=== PATIENT | male | born 1950 | race American Indian/Alaskan Native ===

== ENCOUNTER 2024-07-14 16:55 | Observation (INO) | payer MEDICARE, MEDICAID, SELFPAY ==
[2024-07-14] VITALS (7 sets, daily range): BP systolic 114–175; BP diastolic 62–90; PULSE 64–79; RESP 18–20; TEMP 36.8–37; O2SAT 68–97; BMI 32.8; BMI 33.0
--- NOTE | 2024-07-14 17:27 | PD.EDADULT ---
ED General RME/HPI General Chief complaint: General Adult/Misc Complain Stated complaint: HYPERGLYCEMIA Time Seen by Provider: 07/14/24 17:25 Arrival date/time: 07/14/24 16:55 CC: Frequent urination thirst HPI ongoing for the past week patient was seen in the clinic was noted to have a blood sugar greater than 509 1 1 was initiated transfer patient here patient denies any chest pain shortness of breath fever chills nausea vomiting or difficulty breathing. Patient has been a diabetic for 25 years. No other family members are ill with any symptoms. Related Data Home Medications ?Medication ?Instructions ?Recorded ?Confirmed Levothyroxine * (SYNTHROID *) 175 mcg PO QDAY #0 tabs 12/28/15 07/21/23 atorvastatin 20 mg tablet (Lipitor) 20 mg PO HS #0 tabs 12/28/15 07/21/23 clopidogrel 75 mg tablet (Plavix) 75 mg PO QDAY #0 tabs 12/28/15 07/21/23 lisinopril 40 mg tablet 40 ml PO QDAY #0 tabs 12/28/15 07/21/23 nitroglycerin 0.4 mg sublingual 0.4 mg SL PRN #0 tabs 06/18/16 07/21/23 tablet (Nitrostat) Insulin Aspart * (NOVOLOG *) 18 unit subcut BID #0 units 09/16/16 07/21/23 insulin degludec 100 unit/mL (3 45 subcut QAM ##0 09/16/16 07/21/23 mL) subcutaneous pen (Tresiba FlexTouch U-100 insulin) tamsulosin 0.4 mg capsule 0.4 mg PO QDAY 05/04/18 07/21/23 gabapentin 100 mg capsule 100 mg PO TID 08/10/21 07/21/23 sitagliptin phosphate 50 1 tab PO BID 08/10/21 07/21/23 mg-metformin 1,000 mg tablet (Janumet) dapagliflozin propanediol 10 mg 10 mg PO QDAY 01/14/23 07/21/23 tablet (Farxiga) metformin 1,000 mg tablet 1,000 mg PO QDAY 01/14/23 07/21/23 carvedilol 6.25 mg tablet 6.25 mg PO BID 07/21/23 07/21/23 ergocalciferol (vitamin D2) 1,250 1,250 mcg PO QWEEK 07/21/23 07/21/23 mcg (50,000 unit) capsule fenofibrate 54 mg tablet 54 mg PO QDAY 07/21/23 07/21/23 Allergies Allergy/AdvReac Type Severity Reaction Status Date / Time NKA* Allergy Uncoded 03/22/24 09:38 Review of Systems Review of Systems Narrative Review of Systems: GEN: No fever, no chills, no weight loss, + thirst and urination EYES: No discharge, no visual changes, no pain HEENT: No ear pain, no congestion, no sore throat PULM: No shortness of breath, no cough, no congestion CV: No chest pain, no dyspnea on exertion, no palpitations GI: No nausea, no vomiting, no diarrhea, no pain, no constipation : No frequency, no urgency, no dysuria MUSC/SKEL: No joint pain, no back pain SKIN: No rash PSYCH: No hallucinations, no depression HEME/LYMPH: No easy bleeding or bruising tendencies NEURO: No weakness, no headache Past Medical History Past Medical History CARDIAC: Negative Congestive Heart Failure RESPIRATORY: Negative Chronic Obstructive Pulmonary Disease (COPD) GENITOURINARY: Negative Renal Disease ENDOCRINE: Positive Diabetes Mellitus Type 2; Negative Diabetes Mellitus Type 1 Social History SMOKING STATUS: Never smoker ED Exam Narrative Physical exam: [General: Obese not in any acute distress Head normocephalic HEENT: Within acceptable limits Neck is supple nontender Chest equal chest rise nontender to palpation Respiratory: Clear to auscultation no wheezes crackles or rubs CV: Rate rhythm is regular no murmurs rubs or clicks Abdomen is distended secondary to body habitus soft nontender no masses positive bowel sounds all 4 quadrants Back: No CVA tenderness no spinous process tenderness from cervical spine thoracic and lumbar spine Skin: Intact no petechiae rash induration ulceration or crepitus Extremities: Moving all extremity against resistance cap refill less than 2 seconds neurosensory intact. No lower extremity edema Neuro: Awake alert oriented x3 Glascow coma 15 no focal deficits] Course Quality Measures none Orders Category Date Time Status Saline [Insert IV] NOW Care 07/14/24 17:26 Active XR chest 1V portable Stat Exams 07/14/24 19:24 Ordered A1C [Glycohemoglobin w (eAG)] Stat Lab 07/14/24 19:24 Ordered B-Type Natriuretic Peptide Stat Lab 07/14/24 17:46 Completed Beta Hydroxybutyrate Stat Lab 07/14/24 17:46 Completed CBC Stat Lab 07/14/24 17:46 Completed Comprehensive Metabolic Panel Stat Lab 07/14/24 17:46 Completed Drug Screen,Urine Stat Lab 07/14/24 17:26 Ordered Free T4 (Free Thyroxine) Stat Lab 07/14/24 17:46 Completed LDH (Lactate Dehydrogenase) Stat Lab 07/14/24 17:46 Completed Magnesium Stat Lab 07/14/24 17:46 Completed Partial Thromboplastin Time Stat Lab 07/14/24 17:46 Completed Prothrombin Time with INR Stat Lab 07/14/24 17:46 Completed TSH [Thyroid Stimulating Hormone] Stat Lab 07/14/24 17:46 Completed Troponin I Stat Lab 07/14/24 17:46 Completed Urinalysis Stat Lab 07/14/24 17:26 Ordered Sodium Chloride 0.9% 1000 ml [Ns] 1,000 ml Med 07/14/24 19:16 Active IV 150 mls/hr Sodium Chloride 0.9% 1000 ml [Ns] 1,000 ml Med 07/14/24 17:27 Discontinued IV 999 mls/hr Vital Signs Vital signs: Vital Signs Temperature 98.2 F 07/14/24 17:05 Pulse Rate 79 07/14/24 17:05 Respiratory Rate 18 07/14/24 17:05 Blood Pressure 150/78 H 07/14/24 17:05 Pulse Oximetry (%) 97 07/14/24 17:05 Oxygen Delivery Method Room Air 07/14/24 17:05 [facility] Patient data External records reviewed:: [facility] previous records and EMS form Clinical information provided by:: patient and EMS Social determinants that could affect healthcare access:: none Patient has the following chronic illnesses:: Diabetes hypertension hyperlipidemia on blood thinners hypothyroidism How is presenting disease/condition affected by chronic disease/condition?: exacerbated by Evaluation data The following diagnostics were reviewed and interpreted by me:: lab results Lab and/or radiology exams considered but not ordered:: CBC shows no acute leukocytosis there is anemia of 12 and 35, no thrombocytopenia Coags within acceptable limits Troponin is negative BNP is negative CMP shows sodium 136 potassium of 4.8 chloride of 102 CO2 of 25.8 BUN of 29 creatinine of 2.2 blood glucose of 378. Interpretation Summary: Review of the medical records it shows that this is the worst renal function has been since 2020 maybe earlier. Glucose is coming down with IV fluids without any insulin intervention. I am concerned that the patient will continue to have decline in his renal function even if we correct the glucose level. Patient will be admitted for TYRELL. Patient is agreement with this plan The patient's case discussed with Dr. Jama agrees to accept the patient for admission. Medications Medications considered but not ordered:: None Medication administrations:: Medication Administration History Sodium Chloride (Ns) 1,000 mls @ 150 mls/hr IV .Q6H40M ISAIAH Stop: 08/13/24 19:15 Discontinued Medications Sodium Chloride (Ns) 1,000 mls @ 999 mls/hr IV .Q1H1M ONE Stop: 07/14/24 18:27 Last Admin: 07/14/24 18:15 Dose: 999 mls/hr Documented By: DOUG None Consultations Consultation(s) initiated? (list below): No Diagnosis Differential Diagnosis ED Complaint MDM: DKA TYRELL hyperglycemia Most likely diagnosis given after review of the tests above:: TYRELL hyperglycemia diabetes. Admission Indicated Admission indicated?: indicated Explain why admission is indicated or not indicated:: Further medical management Admission Request Was there a request for admission?: No Disposition Plan Disposition Plan: Admit Medical Decision Making Differential Diagnosis Differential Diagnosis: DKA TYRELL hyperglycemia Lab Data 07/14/24 17:46 07/14/24 17:46 Labs: Lab Results 07/14/24 Range/Units 17:46 WBC 6.3 (3.8-10.6) Thou/mm3 RBC 4.01 L (4.50-5.90) Miln/mm3 Hgb 12.7 L (13.5-16.0) g/dL Hct 35.8 L (41.0-53.0) % MCV 89 (80-100) fL MCH 31.7 (25.0-35.0) pg MCHC 35.5 (31.0-37.0) g/dl RDW Std Deviation 39.8 (35.1-43.9) fL Plt Count 274 (140-440) Thou/mm3 Neut % (Auto) 51 (37-80) % Lymph % (Auto) 32 (10-50) % Bartholomew % (Auto) 11 (0-12) % Eos % (Auto) 5 (0-10) % Baso % (Auto) 1 (0-2.5) % Neut # (Auto) 3.2 (1.8-7.7) Thou/mm3 Lymph # (Auto) 2.0 (1.0-4.8) Thou/mm3 Bartholomew # (Auto) 0.7 (0.0-0.8) Thou/mm3 Eos # (Auto) 0.3 (0.0-0.5) Thou/mm3 Baso # (Auto) 0.0 (0.0-0.2) Thou/mm3 Immature Gran # (Auto) 0.04 H (0.00-0.00) Thou/mm3 Absolute Nucleated RBC 0.02 H (0.00-0.00) Thou/mm3 Immature Gran % 1 H (0-0) % Nucleated RBC % 0 (0) /100 WBC PT 10.3 (9.0-12.2) Seconds INR 0.9 (0.9-1.3) APTT 24.2 (22.0-36.0) Seconds Sodium 136 (136-145) mMol/L Potassium 4.8 (3.4-5.1) mMol/L Chloride 102 (98-107) mMol/L Carbon Dioxide 25.8 (20.0-31.0) mMol/L Anion Gap 8 (7-16) BUN 29 H (9-23) mg/dL Creatinine 2.2 H (0.6-1.3) mg/dL Estim Creat Clear Calc 32.9 L (>60) mL/min eGFR 31 L (60 - ) See Note BUN/Creatinine Ratio 13 (12-20) Ratio Glucose 378 H (74-106) mg/dL Calculated Osmolality 293 (275-295) Calcium 9.3 (8.3-10.6) mg/dL Corrected Calcium 9.3 (8.5-10.1) mg/dL Magnesium 2.0 (1.6-2.6) mg/dL Total Bilirubin 0.3 (0.3-1.2) mg/dL AST 13 (0-34) U/L ALT 13 (10-49) U/L Alkaline Phosphatase 89 (46-116) U/L Lactate Dehydrogenase 198 (120-246) U/L Troponin I < 0.020 (0.0-0.045) ng/mL B-Natriuretic Peptide 26 (0-100) pg/mL Total Protein 6.7 (5.7-8.2) gm/dL Albumin 4.3 (3.4-4.8) gm/dL Globulin 2.4 (2.3-3.5) gm/dL Albumin/Globulin Ratio 1.8 (1.2-2.2) Beta-Hydroxybutyrate/Acetoacetate 0.0 (<0.6) mmol/L TSH 1.73 (0.55-4.78) uIU/mL Free T4 1.51 (0.89-1.76) ng/dL Discharge Plan Plan Patient Disposition: Other Care w/in Hosp ([facility]) Patient condition on transfer: Stable Prescriptions/Referrals Prescriptions/Med Rec: No Action tamsulosin 0.4 mg capsule 0.4 mg PO QDAY gabapentin 100 mg capsule 100 mg PO TID Janumet 50-1,000 mg tablet 1 tab PO BID metformin 1,000 mg tablet 1,000 mg PO QDAY Farxiga 10 mg tablet 10 mg PO QDAY ergocalciferol (vitamin D2) 1,250 mcg (50,000 unit) capsule 1,250 mcg PO QWEEK carvedilol 6.25 mg tablet 6.25 mg PO BID Rx Instructions: must administer with a meal/food fenofibrate 54 mg tablet 54 mg PO QDAY atorvastatin [Lipitor] 20 MG tablet 20 mg PO HS Qty: 0 clopidogrel [Plavix] 75 MG tablet 75 mg PO QDAY Qty: 0 lisinopril 40 MG tablet 40 ml PO QDAY Qty: 0 Levothyroxine * (SYNTHROID *) 175 MCG tablet 175 mcg PO QDAY Qty: 0 nitroglycerin [Nitrostat] 0.4 MG tablet, sublingual 0.4 mg SL PRN Qty: 0 insulin degludec [Tresiba FlexTouch U-100] 100 UNIT/1 ML insulin pen 45 Sub-Q QAM Qty: 0 Insulin Aspart * (NOVOLOG *) 100 U/ML cartridge 18 unit Sub-Q BID Qty: 0 Referrals: Yony Stuart PA-C [Primary Care Provider] - In 1 week Problem List Clinical Impression: TYRELL (acute kidney injury), Diabetes mellitus with hyperglycemia Patient/Caregiver Discharge Instructions Print Language: Nicaraguan Stand Alone Forms: [employer] Info., Patient Portal Info Letter PA/DIRECT MARKETING INTERN Supervising Physician PA/DIRECT MARKETING INTERN Supervising Physician: Sung Zee ENP
[2024-07-14 18:04] LABS: Basophils % (Auto) 1 % (0-2.5); Eosinophils # (Auto) 0.3 Thou/mm3 (0.0-0.5); Eosinophils % (Auto) 5 % (0-10); Hematocrit 35.8 % (41.0-53.0); Hemoglobin 12.7 g/dL (13.5-16.0); Immature Granulocytes % (Auto) 1 % (0-0); Immature Granulocytes Auto 0.04 Thou/mm3 (0.00-0.00); Lymphocytes % (Auto) 32 % (10-50); Mean Corpuscular HGB Conc 35.5 g/dl (31.0-37.0); Mean Corpuscular Hemoglobin 31.7 pg (25.0-35.0); Mean Corpuscular Volume 89 fL (80-100); Monocytes # (Auto) 0.7 Thou/mm3 (0.0-0.8); Monocytes % (Auto) 11 % (0-12); Neutrophils # (Auto) 3.2 Thou/mm3 (1.8-7.7); Neutrophils % (Auto) 51 % (37-80); Nucleated Red Blood Cell # 0.02 Thou/mm3 (0.00-0.00); Nucleated Red Blood Cell % 0 /100 WBC (0); Platelet Count 274 Thou/mm3 (140-440); RDW Standard Deviation 39.8 fL (35.1-43.9); Red Blood Count 4.01 Miln/mm3 (4.50-5.90); White Blood Count 6.3 Thou/mm3 (3.8-10.6)
[2024-07-14 18:15] LABS: INR 0.9 (0.9-1.3); Partial Thromboplastin Time 24.2 Seconds (22.0-36.0); Prothrombin Time 10.3 Seconds (9.0-12.2)
[2024-07-14] MEDS: SODIUM CHLORIDE 0.9% 1000 ML 1,000 ML 999 ML IV (18:15)
[2024-07-14 18:20] LABS: B-Type Natriuretic Peptide 26 pg/mL (0-100)
[2024-07-14 18:26] LABS: Alanine Aminotransferase 13 U/L (10-49); Albumin, Serum 4.3 gm/dL (3.4-4.8); Albumin/Globulin Ratio 1.8 (1.2-2.2); Alkaline Phosphatase 89 U/L (46-116); Anion Gap 8 (7-16); Aspartate Amino Transferase 13 U/L (0-34); BUN/Creatinine Ratio 13 Ratio (12-20); Bilirubin,Total 0.3 mg/dL (0.3-1.2); Blood Urea Nitrogen 29 mg/dL (9-23); Calcium 9.3 mg/dL (8.3-10.6); Calcium (Corrected) 9.3 mg/dL (8.5-10.1); Carbon Dioxide 25.8 mMol/L (20.0-31.0); Chloride 102 mMol/L (98-107); Creatinine (Component) 2.2 mg/dL (0.6-1.3); Estimated Creatinine Clearance 32.9 mL/min (>60); Free T4 (Free Thyroxine) 1.51 ng/dL (0.89-1.76); Globulin 2.4 gm/dL (2.3-3.5); Glucose 378 mg/dL (74-106); LDH (Lactate Dehydrogenase) 198 U/L (120-246); Osmolality,Calculated 293 (275-295); Potassium 4.8 mMol/L (3.4-5.1); Sodium 136 mMol/L (136-145); Thyroid Stimulating Hormone 1.73 uIU/mL (0.55-4.78); Total Protein 6.7 gm/dL (5.7-8.2); Troponin I < 0.020 ng/mL (0.0-0.045); eGFR 31 See Note
--- NOTE | 2024-07-14 19:24 | XR_ITS ---
Examination: AP chest single view Technique one AP portable semiupright chest single view Exam date and time: July 14, 2024 1930 hrs. Indications: Admission diagnosis hyperglycemia Findings: Reduced inspiratory effort Minor atelectasis left base Normal heart size No pneumonia or pulmonary edema Impression: No pneumonia or pulmonary edema
[2024-07-14] MEDS: SODIUM CHLORIDE 0.9% 1000 ML 1,000 ML 100 ML IV (19:48)
--- NOTE | 2024-07-14 19:52 | EKG_ITS ---
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
[2024-07-14 20:04] LABS: Collection Type, Urine Clean Catch; Squamous Epithelial Cell,Urine 0 /hpf (0-5)
--- NOTE | 2024-07-14 20:12 | EVENTNT_ITS ---
Documentation for date of: 07/14/24 Event Note Event Note: Chief Complaint: Frequent urination, increased thirst, and persistently elevated blood glucose levels. History of Present Illness: The patient is a 64-year-old male with a 25-year history of diabetes mellitus who presents with worsening symptoms over the past week, including frequent urination, increased thirst, and persistently elevated blood glucose levels. The patient reports feeling nauseous but denies vomiting. He initially sought evaluation at his clinic, where he was noted to have a blood glucose level exceeding 500 mg/dL. Due to system issues preventing further evaluation, he was transferred to the Emergency Department by ambulance. The patient denied fever, chills, chest pain, shortness of breath, or diarrhea. He mentioned a cough and flu-like symptoms the prior weekend but denies ongoing respiratory complaints. He monitors his blood glucose levels regularly, noting that they have remained consistently elevated despite using 80 units of insulin daily (40 units in the morning and 40 units at night). He recently started on semaglutide (Ozempic), which was delayed due to a refill issue but resumed last week. Upon arrival at the ED, vital signs included a temperature of 98.2?F, heart rate 79 bpm, respiratory rate 18 bpm, blood pressure 150/78 mmHg, and oxygen saturation of 97% on room air. Laboratory tests showed blood glucose at 378 mg/dL, hemoglobin 12.7 g/dL, white blood cell count 6.3 x 10?/?L, creatinine 2.2 mg/dL, and troponin < 0.02 ng/mL. Chest X-ray showed no evidence of pneumonia or pulmonary edema. The patient was admitted for observation and hydration to address his elevated blood glucose and signs of dehydration. He denies recent dietary changes but attributes his elevated glucose to challenges in managing his diabetes. Past Medical History: * Diabetes Mellitus: 25 years, on insulin (80 units/day) and semaglutide. * Hypertension: Diagnosed but no specific medications provided. Past Surgical History: * None reported. Social History: * Non-smoker. * Sober for over 40 years. * Lives alone and cooks for himself. Physical Examination: Vitals: Temp 98.2?F, HR 79 bpm, RR 18/min, BP 150/78 mmHg, SpO? 97% on room air. * General: Alert, oriented, no acute distress. * Cardiovascular: Normal rate and rhythm, no murmurs. * Respiratory: Clear to auscultation bilaterally, no wheezes or rales. * Abdomen: Soft, non-tender, no organomegaly. * Extremities: No edema. * Neurological: Alert and oriented x3, no focal deficits. Labs and Imaging: * Lab Results: * Hemoglobin: 12.7 g/dL * WBC: 6.3 x 10?/?L * Creatinine: 2.2 mg/dL (elevated, consistent with dehydration) * Blood Glucose: 378 mg/dL * Troponin: < 0.02 ng/mL * Imaging: * Chest X-ray: No pneumonia or pulmonary edema. Assessment and Plan: Hyperglycemia: Likely due to suboptimal glucose control and recent dehydration. - Continue current insulin regimen; add sliding scale insulin for tighter control. Will need to adjust on DC. - Monitor blood glucose closely. - Check A1C. - Check UA. Acute Kidney Injury (Creatinine 2.2): Likely secondary to dehydration. - Administer IV fluids for hydration. - Monitor renal function and urine output. Diabetes Mellitus: Long-standing with poor control. - Reinforce dietary counseling (low-carb diet). - Follow up with PCP. Hypertension: Chronic conditions requiring continued management. - Verify medication regimen and adherence. Education and Discharge Planning: - Educate the patient on the importance of regular glucose monitoring and dietary modifications. - Schedule follow-up with primary care for ongoing diabetes management.
--- NOTE | 2024-07-14 20:18 | PD.RESHP ---
Documentation for date of: 07/14/24 HPI History of Present Illness Chief complaint: Nausea, Uncontrolled blood glucose History of present illness: HPI: Patient is a 73-year-old male with a past medical history significant for insulin-dependent diabetes mellitus type 2 [9.6], essential hypertension, hypothyroidism, hyperlipidemia, BPH presenting today with a chief complaint of nausea and uncontrolled blood glucose at home. He follows up regularly with his associate research scientist Dr. Moreau in [place] and urologist Dr. Dyer. Patient stated that for the past week his blood glucose at home has been elevated greater than 400 consistently every day despite being compliant with his insulin as well as oral medication. This was associated with nausea, decreased appetite and generalized malaise. He also had dysuria and increased urinary frequency for the past week. Denies any fever, vomiting, diarrhea, sick contacts, shortness of breath, blurry vision, headache or syncope. Upon review patient also denied any chest pain/pressure, palpitations, PND, orthopnea, dizziness and lower extremity swelling. Patient says that today he reported to the [facility] at the [facility] for nausea and his uncontrolled blood sugars. He was referred to [facility] emergency department from there. Of note patient had an elevated PSA of 3.147 on 07/15/2022. He subsequently had a full workup including MRI ultrasound biopsy at [facility]. MRI revealed heterogeneous prostate gland suspicious 3. Biopsy however was benign. Prostate cancer was ruled out and patient is currently on treatment for BPH and erectile dysfunction by Dr. Dyer. Patient has a follow-up appointment with them in 1 week for further discussion of vacuum device for erectile dysfunction. ED course: BP 150/78 pulse 79, resp 19, temp 98.2 F, SpO2 97% on room air. Labs significant for Hb 12.7, HCT 35.8, WBC 6.3, BUN 29, CR 2.2, glucose 378. Urine analysis pending as well as U tox pending On imaging chest x-ray significant for increased hilar markings bilaterally, unfolded aorta, no signs of pulmonary edema, consolidation or pleural effusion. In the ED patient received normal saline IV fluids 2 L bolus. Patient will be admitted to observation for TYRELL likely prerenal secondary to uncontrolled insulin-dependent diabetes mellitus type 2. Review of Systems Review of Systems Narrative Review of Systems: GENERAL: Denies fever/chills or diaphoresis. HEENT: Denies headaches or visual changes. Denies discharge. Neuro: Denies unusual weakness or difficulty speaking. CARDIO: Denies chest pain or palpitations. PULM: Denies SOB, couging or wheezing. GI: As above. URO: Endorses Dysuria, increased urinary frequency and nocturia > 3 episodes. MSK/EXT/SKIN: Denies joint/skeletal/muschle pain, issues/changes in upper or lower extremities, tingling and buringing sensation of toes. PSYCH: Cooperative, pleasant mood & affect. The rest of the review of systems is otherwise negative. Past Medical History Past Medical History Comments PMH COMMENT: Past medical history: ?Insulin-dependent diabetes mellitus type 2 x 20 years ? Essential hypertension x 20 years ? Hypothyroidism ? Hyperlipidemia ? BPH ? Erectile dysfunction ? Obesity class I Medication list: ? L-thyroxine 175 mcg p.o. daily ? Tradjenta 5 Mg p.o. daily ? Lantus 65 units SC at bedtime ? Ozempic 0.5 Mg SC weekly ? Gabapentin 300 Mg p.o. 3 times daily ? Clopidogrel 75 Mg p.o. daily ? Atorvastatin 20 Mg p.o. at bedtime ? Tamsulosin 0.4 Mg p.o. at bedtime ? Carvedilol 6.25 Mg p.o. 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. Education Level: Attended college at [employer], degree in studies. Recently graduated from [employer] with a bachelor's degree in arts. Marital Status: Single Tobacco use: Denies ETHO use: Denies. 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 As a teenager and during college he was a heavy alcoholic and would drink beer, gin and wine until he passed out. Illicit drug use: Denies Social History Note: lives with cousin. At baseline he ambulates with a cane and carry out all ADLs independently. Family History: Mom?cervical, breast and skin cancer. at 85 Father? from a stroke at age 54 Exam Vital Signs Temp Pulse Resp BP Pulse Ox O2 Del Method 98.6 F 70 19 151/90 H 68 L Room Air 07/14/24 18:11 07/14/24 18:11 07/14/24 18:11 07/14/24 18:11 07/14/24 18:11 07/14/24 18:11 Narrative Exam Constitutional Alert, oriented x 3 and comfortable. Elderly, obese male. HEENT Vision grossly intact. Patent nares. Trachea midline Respiratory Chest normal on inspection and clear auscultation bilaterally Cardiovascular S1 and S2 audible, RRR. No murmurs carotid bruit. No gross JVD. Abdominal Soft, obese and non tender to palpation in all quadrants. BS + Genitourinary No bladder tenderness, no flank pain. Normal to palpation Musculoskeletal Extremities tone within normal limits. No LE edema. Neurological CN II - XII grossly intact. Extremity motor and sensation grossly intact. Skin Warm, dry and intact. Dry flaky patch of skin on lateral to the umbilicus on the right approximately 5 x 5 cm Psychiatric Patient has good affect, is cooperative Results: Labs 07/14/24 17:46 07/14/24 17:46 Labs: Short CBC 07/14/24 Range/Units 17:46 WBC 6.3 (3.8-10.6) Thou/mm3 Hgb 12.7 L (13.5-16.0) g/dL Hct 35.8 L (41.0-53.0) % Plt Count 274 (140-440) Thou/mm3 BMP 07/14/24 17:46 Sodium 136 Potassium 4.8 Chloride 102 Carbon Dioxide 25.8 BUN 29 H Creatinine 2.2 H Glucose 378 H Calcium 9.3 Cardiac Enzymes 07/14/24 Range/Units 17:46 Troponin I < 0.020 (0.0-0.045) ng/mL Liver Function 07/14/24 Range/Units 17:46 Total Bilirubin 0.3 (0.3-1.2) mg/dL AST 13 (0-34) U/L ALT 13 (10-49) U/L Alkaline Phosphatase 89 (46-116) U/L Albumin 4.3 (3.4-4.8) gm/dL Quality Measures Quality Measures none Advance care planning discussed with:: patient Medications Home Medications and Allergies Home Medications ?Medication ?Instructions ?Recorded ?Confirmed ?Type Levothyroxine * (SYNTHROID *) 175 mcg PO QDAY #0 tabs 12/28/15 07/21/23 History atorvastatin 20 mg tablet (Lipitor) 20 mg PO HS #0 tabs 12/28/15 07/21/23 History clopidogrel 75 mg tablet (Plavix) 75 mg PO QDAY #0 tabs 12/28/15 07/21/23 History lisinopril 40 mg tablet 40 ml PO QDAY #0 tabs 12/28/15 07/21/23 History nitroglycerin 0.4 mg sublingual 0.4 mg SL PRN #0 tabs 06/18/16 07/21/23 History tablet (Nitrostat) Insulin Aspart * (NOVOLOG *) 18 unit subcut BID #0 units 09/16/16 07/21/23 History insulin degludec 100 unit/mL (3 45 subcut QAM ##0 09/16/16 07/21/23 History mL) subcutaneous pen (Tresiba FlexTouch U-100 insulin) tamsulosin 0.4 mg capsule 0.4 mg PO QDAY 05/04/18 07/21/23 History gabapentin 100 mg capsule 100 mg PO TID 08/10/21 07/21/23 History sitagliptin phosphate 50 1 tab PO BID 08/10/21 07/21/23 History mg-metformin 1,000 mg tablet (Janumet) dapagliflozin propanediol 10 mg 10 mg PO QDAY 01/14/23 07/21/23 History tablet (Farxiga) metformin 1,000 mg tablet 1,000 mg PO QDAY 01/14/23 07/21/23 History carvedilol 6.25 mg tablet 6.25 mg PO BID 07/21/23 07/21/23 History ergocalciferol (vitamin D2) 1,250 1,250 mcg PO QWEEK 07/21/23 07/21/23 History mcg (50,000 unit) capsule fenofibrate 54 mg tablet 54 mg PO QDAY 07/21/23 07/21/23 History Allergies Allergy/AdvReac Type Severity Reaction Status Date / Time NKA* Allergy Uncoded 03/22/24 09:38 Visit Medications Acetaminophen (Acetaminophen 325 Mg Tablet) 650 mg PO Q6H PRN PRN Reason: Fever >101.5 Stop: 08/13/24 19:40 Carvedilol (Carvedilol 3.125 Mg Tablet) 6.25 mg PO BIDWM ISAIAH Stop: 08/14/24 07:59 Clopidogrel Bisulfate (Clopidogrel Bisulfate 75 Mg Tablet) 75 mg PO QDAY [facility] Stop: 08/14/24 08:59 Dextrose (Dextrose 50%-Water Inj 50 Ml Syringe) 25 ml IV Q15MIN PRN PRN Reason: BG 50-70 responsive npo pt Stop: 08/13/24 19:42 Dextrose (Dextrose 50%-Water Inj 50 Ml Syringe) 50 ml IV Q15MIN PRN PRN Reason: BG <50 OR BG <70 & pt unresponsive Stop: 08/13/24 19:42 Glucagon (Glucagon Inj 1 Mg Vial) 1 mg IM Q15MIN PRN PRN Reason: BG <70, and no IV access Heparin Sodium (Porcine) (Heparin Sod Inj 5000 Unit/Ml Vial) 5,000 unit SC Q8HR [facility] Stop: 07/28/24 21:59 Sodium Chloride (Ns) 1,000 mls @ 100 mls/hr IV .Q10H [facility] Stop: 08/13/24 19:44 Last Admin: 07/14/24 19:48 Dose: 100 mls/hr Insulin Glargine (Insulin Glargine (Lantus) 5 Unit/0.05 Ml (Per 5 Units)) 40 unit SC BID [facility] Stop: 08/13/24 20:59 Insulin Human Regular (Insulin Hum Regular 1 Unit/0.01 Ml (Per Unit)) 0 unit SC Q6HR [facility]; Protocol Stop: 08/14/24 00:00 Levothyroxine Sodium 125 mcg/ (Levothyroxine Sodium 50 mcg) 175 mcg PO ACBR [facility] Stop: 08/14/24 05:59 Tamsulosin HCl (Tamsulosin Hcl 0.4 Mg Capsule) 0.4 mg PO QDAY [facility] Stop: 08/14/24 08:59 Discontinued Medications Sodium Chloride (Ns) 1,000 mls @ 999 mls/hr IV .Q1H1M ONE Stop: 07/14/24 18:27 Last Infusion: 07/14/24 19:46 Dose: Infused Sodium Chloride (Ns) 1,000 mls @ 150 mls/hr IV .Q6H40M [facility] Stop: 08/13/24 19:15 Last Admin: 07/14/24 19:48 Dose: Not Given Assessment & Plan Plan Patient is a 73-year-old male with a past medical history significant for insulin-dependent diabetes mellitus type 2 [9.6], essential hypertension, hypothyroidism, hyperlipidemia, BPH presenting today with a chief complaint of nausea and uncontrolled blood glucose at home. He follows up regularly with his associate research scientist Dr. Moreau in [place] and urologist Dr. Dyer. Patient will be admitted to observation for TYRELL likely prerenal secondary to uncontrolled insulin-dependent diabetes mellitus type 2. 1. Acute Kidney Injury prerenal versus renal 2. Possible CKD 3. Uncontrolled insulin-dependent diabetes mellitus type 2 4. Diabetic neuropathy Patient's stated that for the past week he had polydipsia and polyuria He also had uncontrolled blood glucose with sugars at home being greater than 400 for the past week. 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 On admission CR 2.2. Last creatinine on file 1.4 from 2020. Blood glucose on admission > 500 Paient received 1 L Normal Saline bolus in the ED. Blood glucose now improved at 300 Plan: ? Low carbohydrate consistent diet ? Registered dietitian referral ? HbA1c, lipid panel ? Normal saline 1 L maintenance fluid at 100 cc/hour ? Gabapentin 300 Mg p.o. 3 times daily for diabetic neuropathy ? Insulin glargine 40 units SC twice daily as basal insulin ? Sliding scale insulin to cover for any blood glucose spikes 5. Essential hypertension 6. Hyperlipidemia On admission patient's BP 150/78. Home medication Coreg 6.25 mg p.o. twice daily and atorvastatin 20 Mg p.o. at bedtime Plan: ? Resume home medication Coreg 6.25 Mg p.o. twice daily ? Resume home medication atorvastatin 20 Mg p.o. at bedtime 7. Hypothyroidism Home medication levothyroxine 175 mcg p.o. daily Plan: ? Resume home medication levothyroxine 175 mcg p.o. daily 8. BPH 9. Erectile dysfunction Home medication Flomax 0.4 Mg p.o. daily Patient being worked up for implantation of vacuum assisted device with atrial dysfunction by urologist Dr. Dyer. He has a follow-up appointment with them next week. Plan: ? Resumed home medication Flomax 0.4 mg p.o. daily ? Keep follow-up appointment with urology, Dr. Dyer in 1 week. 10. Obesity class I Patient's BMI 32.9 kg/M Plan: ? Patient counseled on weight loss and lifestyle modifications ? Registered dietitian referral 11. Leg cramps DDx: Possible peripheral arterial disease Patient states that he has intermittent leg cramps at night and also claudication after walking for approximately 100 m Plan: ? Recommend BLAYNE duplex arterial ultrasound as outpatient to further investigate leg cramps. Health maintenance: Disposition: IV fluids and insulin for blood glucose control and TYRELL Diet: Low consistent carb Lines: pIVs GI Prophylaxis: None Thrombo Prophylaxis: Heparin 5000 U sc Q 8 hrly Code status: FULL CODE Plan of care discussed with Attending Dr. Wiley Giang MD PGY 1 Attending Provider Attestation/Addendum Pt was evaluated and plan formulated together with the housestaff team. I have reviewed the residents note above and agree with most of its content. Please refer to the residents note for additional details.
[2024-07-14] MEDS: HEPARIN SOD INJ 5000 UNIT/ML VIAL SC (21:42)
[2024-07-14] MEDS: INSULIN GLARGINE (Lantus) 5 UNIT/0.05 ML (PER 5 UNITS) 40 UNIT SC (21:42)
[2024-07-14] MEDS: GABAPENTIN 300 MG CAPSULE PO (21:42)
[2024-07-14 21:45] LABS: Bilirubin,Urine Negative (Negative); Blood,Urine Negative (Negative); Clarity,Urine Clear (Clear/Hazy); Color,Urine Colorless (Lt Yel-Yel); Glucose, Urine 4+ (Negative); Ketones,Urine Negative (Negative); Leukocyte Esterase,Urine Negative (Negative); Nitrite,Urine Negative (Negative); Protein,Urine 1+ (Neg - Trace); RBC,Urine 2 /hpf (0-3); Specific Gravity,Urine 1.026 (1.001-1.035); Urobilinogen,Urine Negative mg/dL (0.0-1.0); WBC,Urine < 1 /hpf (0-5)
[2024-07-14 22:08] LABS: Amphetamine/Methamp Scrn,U Negative (Negative); Barbiturate Screen,Urine Negative (Negative); Benzodiazepines Screen,Urine Negative (Negative); Benzoylecgonine Screen, Ur Negative (Negative); Fentanyl Screen,Urine Negative (Negative); Opiate Screen,Urine Negative (Negative); THC Screen,Urine Negative (Negative)
[2024-07-14 22:23] LABS: Glucose Estimated Average 295 mg/dL (80-131); Hemoglobin A1C 11.9 % Hgb (4.8-6.0)
--- NOTE | 2024-07-14 23:18 | PC.NURSE ---
REPORT CALLED TO PAULETTE MCGILL. ALL QUESTIONS ASKED AND ANSWERED. PATIENT TRANSFERRED TO ROOM BY STAFF. NO DISTRESS NOTED AT TRANSFER. PATIENT REMAINS ON ROOM AIR.
[2024-07-15] VITALS: BP 147/86; PULSE 67; RESP 20; TEMP 36.4; O2SAT 96
[2024-07-15] MEDS: INSULIN HUM REGULAR 1 UNIT/0.01 ML (PER UNIT) SC ×2 (00:35→08:07)
[2024-07-15 04:00] VITALS: BP 126/73; PULSE 68; RESP 20; TEMP 36.2; O2SAT 96
[2024-07-15] MEDS: HEPARIN SOD INJ 5000 UNIT/ML VIAL SC (05:36)
[2024-07-15] MEDS: LEVOTHYROXINE SODIUM 125 MCG, LEVOTHYROXINE SODIUM 50 MCG 175 MCG PO (05:36)
[2024-07-15] MEDS: GABAPENTIN 300 MG CAPSULE PO ×2 (05:36→14:33)
[2024-07-15 06:36] LABS: Basophils # (Auto) 0.1 Thou/mm3 (0.0-0.2); Basophils % (Auto) 1 % (0-2.5); Eosinophils # (Auto) 0.4 Thou/mm3 (0.0-0.5); Eosinophils % (Auto) 7 % (0-10); Hematocrit 33.5 % (41.0-53.0); Hemoglobin 11.7 g/dL (13.5-16.0); Immature Granulocytes % (Auto) 1 % (0-0); Immature Granulocytes Auto 0.04 Thou/mm3 (0.00-0.00); Lymphocytes # (Auto) 2.2 Thou/mm3 (1.0-4.8); Lymphocytes % (Auto) 37 % (10-50); Mean Corpuscular HGB Conc 34.9 g/dl (31.0-37.0); Mean Corpuscular Hemoglobin 31.8 pg (25.0-35.0); Mean Corpuscular Volume 91 fL (80-100); Monocytes # (Auto) 0.7 Thou/mm3 (0.0-0.8); Monocytes % (Auto) 11 % (0-12); Neutrophils # (Auto) 2.6 Thou/mm3 (1.8-7.7); Neutrophils % (Auto) 43 % (37-80); Nucleated Red Blood Cell % 0 /100 WBC (0); Platelet Count 257 Thou/mm3 (140-440); Red Blood Count 3.68 Miln/mm3 (4.50-5.90)
[2024-07-15 06:58] LABS: Anion Gap 9 (7-16); BUN/Creatinine Ratio 15 Ratio (12-20); Blood Urea Nitrogen 25 mg/dL (9-23); Calcium 8.8 mg/dL (8.3-10.6); Carbon Dioxide 25.4 mMol/L (20.0-31.0); Cardiac Risk Estimate 5.8 RATIO (4.0-6.7); Chloride 106 mMol/L (98-107); Cholesterol 232 mg/dL (132-200); Creatinine (Component) 1.7 mg/dL (0.6-1.3); Estimated Creatinine Clearance 41.3 mL/min (>60); Glucose 141 mg/dL (74-106); HDL Cholesterol 40 mg/dL (40-60); Magnesium 1.9 mg/dL (1.6-2.6); Osmolality,Calculated 285 (275-295); Sodium 140 mMol/L (136-145); Triglycerides 481 mg/dL (30-150); eGFR 42 See Note
[2024-07-15 08:00] VITALS: BP 150/91; PULSE 68; RESP 19; TEMP 36; O2SAT 94
[2024-07-15 08:05] VITALS: BP 150/91; PULSE 70
[2024-07-15] MEDS: carVEDILOL 3.125 MG TABLET 6.25 MG PO (08:05)
[2024-07-15] MEDS: TAMSULOSIN HCL 0.4 MG CAPSULE PO (08:06)
[2024-07-15] MEDS: CLOPIDOGREL BISULFATE 75 MG TABLET PO (08:06)
[2024-07-15] MEDS: INSULIN GLARGINE (Lantus) 5 UNIT/0.05 ML (PER 5 UNITS) 40 UNIT SC (08:07)
--- NOTE | 2024-07-15 08:54 | PC.SS ---
Initial assessment: This is 73 year old male admitted for TYRELL. Patient appeared alert and oriented. Patient lives at home with his cousin, Jonathan Dempsey. Patient confirmed home address. Patient reports to be independent with ADL's. Patient has a cane at home, no other DME. Patient follows Dr. Yony Rolle for primary care. Patient's pharmacy is [facility] in [place]. Patient assigned his sister, Judith Urbina as his emergency contact. Patient wants to return home at time of discharge. No needs identified. D/c plan: Home Contact: sister, Judith Urbina
[2024-07-15] MEDS: SODIUM CHLORIDE 0.9% 1000 ML 1,000 ML 100 ML IV (10:01)
[2024-07-15] MEDS: Magnesium Sulfate 2 GM Ivpb 2 GM/50 ML BAG IV (10:04)
[2024-07-15 11:45] VITALS: BMI 32.8
[2024-07-15 12:00] VITALS: BP 138/72; PULSE 65; RESP 19; TEMP 36.1; O2SAT 94
--- NOTE | 2024-07-15 16:43 | ESDS_ITS ---
<Statement entered by Félix Brown MD - 07/15/24 18:46> I saw and examined the patient, and I agree with current management stated by Dr Paulino DO PGY1. Plan of care was discussed with the attending physician and resident physician. Disclaimer: Despite multiple revisions, due to the dictation software being used, the document bellow may not be free of grammatical errors including phonetic/typographic errors. However, this does not deter from our commitment to providing health care in the patient's best interest in mind. Dr. Stephanie MD, PGY 2 Planned Discharge Date 07/15/24 DS: Providers Provider Date of admission: 07/14/24 19:41 Primary care physician: Yony Stuart PA-C Admitting Provider: Claudio Jama MD Attending Provider on Admission: Jose Antonio Patricio DO Consults: 07/14/24 20:32 Referral Registered Dietitian Routine Comment: Uncontrolled Diabetes Instructions: Compliant with insulin and oral medication. However still has uncontrolled blood glucose. Poor diet, mostly eats fast food e.g babatunde forrest and burger magaly 07/15/24 00:05 Referral Pili Stat Comment: Referral Respiratory Therapy Stat Comment: Attending Provider on DC: Camilo Kate Discharging Provider: Camilo Kate DS: Diagnosis Problem List Completed Was Problem List Reviewed/Reconciled?: Yes Hospital Course Hospital Course Hospital course: # Acute Kidney Injury prerenal versus renal # Possible CKD # Uncontrolled insulin-dependent diabetes mellitus type 2 # Diabetic neuropathy # Essential hypertension # Hyperlipidemia # Hypothyroidism # BPH # Erectile dysfunction # Obesity class I # Leg cramps Patient is a 73-year-old male with a past medical history significant for insulin-dependent diabetes mellitus type 2 [9.6], essential hypertension, hypothyroidism, hyperlipidemia, BPH presenting today with a chief complaint of nausea and uncontrolled blood glucose at home.He follows up regularly with his senior firmware engineer Dr. Moreau in [place] and urologist Dr. Dyer.Patient stated that for the past week his blood glucose at home has been elevated greater than 400 consistently every day despite being compliant with his insulin as well as oral medication. This was associated with nausea, decreased appetite and generalized malaise. He also had dysuria and increased urinary frequency for the past week. Denies any fever, vomiting, diarrhea, sick contacts, shortness of breath, blurry vision, headache or syncope.Upon review patient also denied any chest pain/pressure, palpitations, PND, orthopnea, dizziness and lower extremity swelling.Patient says that today he reported to the [facility] at the [facility] for nausea and his uncontrolled blood sugars. He was referred to [facility] emergency department from there.Of note patient had an elevated PSA of 3.147 on 07/15/2022. He subsequently had a full workup including MRI ultrasound biopsy at [facility]. MRI revealed heterogeneous prostate gland suspicious 09/08. Biopsy however was benign. Prostate cancer was ruled out and patient is currently on treatment for BPH and erectile dysfunction by Dr. Dyer. Patient has a follow-up appointment with them in 1 week for further discussion of vacuum device for erectile dysfunction.ED course: BP 150/78 pulse 79, resp 19, temp 98.2 F, SpO2 97% on room air. Labs significant for Hb 12.7, HCT 35.8, WBC 6.3, BUN 29, CR 2.2, glucose 378. Urine analysis pending as well as U tox pending. On imaging chest x-ray significant for increased hilar markings bilaterally, unfolded aorta, no signs of pulmonary edema, consolidation or pleural effusion. In the ED patient received normal saline IV fluids 2 L bolus. Patient was admitted for TYRELL likely prerenal secondary to uncontrolled insulin-dependent diabetes type 2. Patient was adequately treated with maintenance fluids and appropriate insulin treatment. Over patient's hospital course patient's blood sugars return to adequate levels, kidney function returned to adequate levels. Upon discharge patient states that he does not have any systemic symptoms and feels much better. Upon discharge patient is advised to follow-up with his [facility] care provider within 7 days. Patient is highly advised to do regular glucose checks and maintain strict glycemic control to prevent further complications. Med reconciliation performed, however patient needs to follow-up with primary care provider for outpatient. Patient advised to return the emergency department if symptoms persist/worsen. Patient is agreeable to this plan. Status at Discharge Cognitive/behavioral status at discharge: Patient stable at time of discharge Time Spent with Patient Time attestation: Total time spent providing and/or coordinating discharge services: Exam Vital Signs Temp Pulse Resp BP Pulse Ox O2 Del Method 97.0 F 65 19 138/72 H 94 L Room Air 07/15/24 12:00 07/15/24 12:00 07/15/24 12:00 07/15/24 12:00 07/15/24 12:00 07/15/24 12:00 Narrative Exam Constitutional Alert, oriented x 3 and comfortable. Elderly, obese male. HEENT Vision grossly intact. Patent nares. Trachea midline Respiratory Chest normal on inspection and clear auscultation bilaterally Cardiovascular S1 and S2 audible, RRR. No murmurs carotid bruit. No gross JVD. Abdominal Soft, obese and non tender to palpation in all quadrants. BS + Genitourinary No bladder tenderness, no flank pain. Normal to palpation Musculoskeletal Extremities tone within normal limits. No LE edema. Neurological CN II - XII grossly intact. Extremity motor and sensation grossly intact. Skin Warm, dry and intact. Dry flaky patch of skin on lateral to the umbilicus on the right approximately 5 x 5 cm Psychiatric Patient has good affect, is cooperative Discharge Plan Plan Patient Disposition: HOME (Self Care) Patient condition on transfer: Stable Care Plan Goals: Please continue your home meds as directed. Please continue your new medications: Insulin degludec 40 units once a day Please regularly check your blood glucose. It is extremely important to keep your diabetes within control to prevent further progression of disease. Please follow-up with your primary care provider within 7 days upon discharge. If you do not have a primary care provider, you are welcome to follow-up with the [facility] at [facility] [place] [address] Please return to the emergency department if your symptoms persist or worsen. Prescriptions/Referrals Prescriptions/Med Rec: New insulin degludec [Tresiba FlexTouch U-100] 100 unit/mL (3 mL) insulin pen 40 unit subcut QDAY Qty: 15 3RF (DME) pen needle, diabetic [Ultra-Thin II Ins Pen Kramer] 29 gauge x 1/2 needle See Rx Instructions .Route Qty: 100 3RF Rx Instructions: As directed Continued tamsulosin 0.4 mg capsule 0.4 mg PO QDAY gabapentin 100 mg capsule 100 mg PO TID ergocalciferol (vitamin D2) 1,250 mcg (50,000 unit) capsule 1,250 mcg PO QWEEK carvedilol 6.25 mg tablet 6.25 mg PO BID Rx Instructions: must administer with a meal/food fenofibrate 54 mg tablet 54 mg PO QDAY atorvastatin [Lipitor] 20 MG tablet 20 mg PO HS Qty: 0 clopidogrel [Plavix] 75 MG tablet 75 mg PO QDAY Qty: 0 Levothyroxine * (SYNTHROID *) 175 MCG tablet 175 mcg PO QDAY Qty: 0 nitroglycerin [Nitrostat] 0.4 MG tablet, sublingual 0.4 mg SL PRN Qty: 0 amlodipine 5 mg tablet 5 mg PO HS Patient Comments: TAKE 1 TABLET BY MOUTH EVERY NIGHT AT BEDTIME Tradjenta 5 mg tablet 5 mg PO QDAY Patient Comments: TAKE 1 TABLET BY MOUTH EVERY DAY Jardiance 10 mg tablet 20 mg PO QDAY Patient Comments: TAKE 1 TABLET BY MOUTH EVERY DAY IN THE MORNING lisinopril 40 mg tablet 40 mg PO QDAY Patient Comments: TAKE 1 TABLET BY MOUTH EVERY DAY Ozempic 0.25 mg or 0.5 mg (2 mg/3 mL) pen injector 0.5 mg SUBCUT QWEEK Patient Comments: INJECT 0.5MG UNDER THE SKIN EVERY WEEK ON THE SAME DAY OF EACH WEEK Discontinued Farxiga 10 mg tablet 10 mg PO QDAY Referrals: Yony Stuart PA-C [Primary Care Provider] - Patient/Caregiver Discharge Instructions Discharge Activity: activity as tolerated Other Discharge Activity Instructions:: Please continue your home meds as directed. Please continue your new medications: Insulin degludec 40 units once a day Please regularly check your blood glucose. It is extremely important to keep your diabetes within control to prevent further progression of disease. Please follow-up with your primary care provider within 7 days upon discharge. If you do not have a primary care provider, you are [facility] [address] [place] [address] Please return to the emergency department if your symptoms persist or worsen. Education Materials: Diabetes: Caring for Your Body, Diabetes and Kidney Disease, Acute Kidney Failure Dc, Diabetes: Ways to Take Medicine Print Language: [place] Stand Alone Forms: Alize Award Info., Patient Portal Info Letter, Work/Release Restrictions Discharge Order Discharge Orders: Discharge (Routine); Ordered 07/15/24 Ordered By: Neno Mina Quality Discharge Quality Measures VTE prophylaxis Attestestation Attestation I have discussed and was present for the essential components of the discharge history, physical examination, diagnosis, and discharge treatment plan with the resident. I agree with the patient's discharge care as documented by the resident and amended herein by me. Parish Patricio DO. The patient understood all discharge instructions, all questions were answered satisfactorily. The patient was instructed to return to the Emergency Department is symptoms worsened or persisted. Patient was stable, afebrile, tolerating p.o. intake and ambulatory time of discharge. The patient's A1c is 11.9 despite the fact the patient endorses compliance with medical management. He will likely need short acting insulin on top of his long-acting however I am not going to start this on the inpatient setting, his primary care provider will need to start and monitor as deemed appropriate. Kidney function improved at time of discharge home. Patient will need to follow-up with his primary care provider within 7 to 10 days of discharge and specifically instructed to address his diabetes which is uncontrolled at present. Although this document has been carefully reviewed, there may still be some phonetic and other typographical errors. These errors are purely grammatical due to imperfections in the software program and should not be construed in any way to compromise the substance of the patient's medical care during this visit.
== END 2024-07-15 15:20 | disposition home or self-care (01) ==
LOC: SERX 19:31 → S3NX 07-15 07:09 → SERHOLD 07-15 08:57
PROVIDERS: Registered Nurse General Practice; Admitting Provider Internal Medicine; Emergency Provider Emergency Medicine; PCP Physician Assistant; Visit Provider Student in an Organized Health Care Education/Training Program
DX: E11.65 Type 2 diabetes mellitus with hyperglycemia (principal); E03.9 Hypothyroidism, unspecified; E11.40 Type 2 diabetes mellitus with diabetic neuropathy, unspecified; E66.811 Obesity, class 1; E78.5 Hyperlipidemia, unspecified; I10 Essential (primary) hypertension; N17.9 Acute kidney failure, unspecified; N40.1 Benign prostatic hyperplasia with lower urinary tract symptoms; N52.9 Male erectile dysfunction, unspecified; Z01.810 Encounter for preprocedural cardiovascular examination; R35.0 Frequency of micturition; E86.0 Dehydration
CPT/HCPCS: 36415; 71045; 80048; 80053; 80061; 80307; 81001; 82010; 83036; 83615; 83735; 83880; 84439; 84443; 84484; 85025; 85610; 85730; 93005; 96360; 96361; 96372; 99285; G0378; J1643; J1815; J3475; J7030; A9270

== ENCOUNTER → 2024-08-20 | Outpatient (CLI) | payer MEDICARE, MEDICAID, SELFPAY | END | disposition home or self-care (01) | PROVIDERS: Referring Provider Urology; Visit Provider Urology | DX: N40.1 Benign prostatic hyperplasia with lower urinary tract symptoms (principal) | CPT/HCPCS: 36415; 84153 ==

== ENCOUNTER → 2024-08-20 | Outpatient (BNVA) | payer MEDICARE, MEDICAID, SELFPAY | END | disposition home or self-care (01) | PROVIDERS: PCP Physician Assistant; Referring Provider Physician Assistant; Visit Provider Urology | DX: N40.1 Benign prostatic hyperplasia with lower urinary tract symptoms (principal); N13.8 Other obstructive and reflux uropathy; R35.0 Frequency of micturition; N52.9 Male erectile dysfunction, unspecified; Z98.890 Other specified postprocedural states; Z80.42 Family history of malignant neoplasm of prostate; E11.9 Type 2 diabetes mellitus without complications; I10 Essential (primary) hypertension; I25.10 Atherosclerotic heart disease of native coronary artery without angina pectoris; E66.9 Obesity, unspecified; Z68.32 Body mass index [BMI] 32.0-32.9, adult | CPT/HCPCS: 81003; 99212; G0463 ==

== ENCOUNTER → 2024-08-24 | Outpatient (CLI) | payer MEDICARE, MEDICAID, SELFPAY ==
[2024-08-24 18:54] LABS: Prostate Specific Antigen 5.38 ng/mL (0-4.00)
== END | disposition home or self-care (01) ==
LOC: COPL 16:47
PROVIDERS: PCP Urology; Referring Provider Urology; Visit Provider Urology
DX: N40.1 Benign prostatic hyperplasia with lower urinary tract symptoms (principal)
CPT/HCPCS: 36415; 84153

== ENCOUNTER → 2024-11-04 | Outpatient (BNVA) | payer MEDICARE, MEDICAID, SELFPAY | END | disposition home or self-care (01) | PROVIDERS: PCP Urology; Referring Provider Urology; Visit Provider Urology | DX: N40.1 Benign prostatic hyperplasia with lower urinary tract symptoms (principal); R39.12 Poor urinary stream; E11.9 Type 2 diabetes mellitus without complications | CPT/HCPCS: 51741; 51798 ==

== ENCOUNTER → 2024-11-16 | Outpatient (BNVA) | payer MEDICARE, MEDICAID, SELFPAY | END | disposition home or self-care (01) | PROVIDERS: PCP Urology; Referring Provider Urology; Visit Provider Urology | DX: N40.1 Benign prostatic hyperplasia with lower urinary tract symptoms (principal); N13.8 Other obstructive and reflux uropathy; E11.9 Type 2 diabetes mellitus without complications | CPT/HCPCS: 76872 ==

== ENCOUNTER → 2025-05-24 | Outpatient (BNVA) | payer MEDICARE, MEDICAID, SELFPAY | END | disposition home or self-care (01) | PROVIDERS: PCP Physician Assistant; Referring Provider Physician Assistant; Visit Provider Urology | DX: R97.20 Elevated prostate specific antigen [PSA] (principal); N52.9 Male erectile dysfunction, unspecified; N40.1 Benign prostatic hyperplasia with lower urinary tract symptoms; N13.8 Other obstructive and reflux uropathy; I12.9 Hypertensive chronic kidney disease with stage 1 through stage 4 chronic kidney disease, or unspecified chronic kidney disease; E11.22 Type 2 diabetes mellitus with diabetic chronic kidney disease; N18.30 Chronic kidney disease, stage 3 unspecified; I25.10 Atherosclerotic heart disease of native coronary artery without angina pectoris; Z80.42 Family history of malignant neoplasm of prostate; E66.9 Obesity, unspecified; Z68.31 Body mass index [BMI] 31.0-31.9, adult | CPT/HCPCS: 81003; 99212; G0463 ==